=== PATIENT | female | born 1970 | race African-American/Black ===

== ENCOUNTER 2017-01-12 22:18 | Emergency (ER) | payer OTHER ==
--- NOTE | ~2017-01-12 | CR72 ---
[facility] A Service of [facility] & [facility] RADIOLOGY TEXT RESULTS PATIENT: GIOVANNI BANSAL LOCATION: SED : 70 UNIT #: [id number] AGE: [address]: Clyde Quezada MD SEX: F ORDER DR: [id number] [place] [id number] E MR#: [id number] Acc #: [id number] NAME: GIOVANNI BANSAL : 1970 SEX: F STUDY DATE/TIME: 01/12/2017 22:37 UNIT: SED ROOM: STUDY DESCRIPTION: CR Chest Single View Portable Attending Physician: Clyde Quezada M.D. Ordering Physician: Clyde Quezada M.D. Primary Care Physician: Malu Lee M.D. MEDICAL IMAGING REPORT This report is preliminary unless electronic signature is present. EXAM Single view chest x-ray 01/12/2017 HISTORY 46-year-old female in the ED complaining of 2-day history of chest and epigastric pain, fatigue. She reports a past history of MA. Hypertension. TECHNIQUE AP portable chest x-ray. FINDINGS No active disease in the chest. Heart size and pulmonary vascularity are within normal limits given technique. The lungs appear clear. No visible pulmonary infiltrate or pleural effusion. Benign calcified granuloma right lateral midlung. No change since 11/21/2011. IMPRESSION No active disease. No change since 11/21/2011. Dictated by... Joe Barboza M.D. THIS IS AN ELECTRONICALLY VERIFIED REPORT Joe Barboza M.D. at 01/13/2017 5:58 AM JOSELUIS/elvira TD: 01/12/2017 23:46 JOB #: [id number] MEDICAL IMAGING REPORT Page 1 of 1
--- NOTE | ~2017-01-12 | EKG ---
PATIENT: GIOVANNI BANSAL UNIT #: [id number] Ventricular Rate: 64 BPM Atrial Rate: 64 BPM P-R Interval: 134 ms QRS Duration: 82 ms Q-T Interval: 406 ms QTC Calculation(Bezet): 418 ms P [place]: 26 degrees Calculated R [place]: -13 degrees Calculated T [place]: 0 degrees Diagnosis Line: Normal sinus rhythm Diagnosis Line: Normal ECG Diagnosis Line: When compared with ECG of 21-NOV-2011 02:06, Diagnosis Line: No significant change was found Diagnosis Line: Confirmed by VICENTE CRONIN MD ([id number]) on Diagnosis Line: 01/14/2017 9:21:49 AM INTERPRETING MD: ROSEANNE URIAS
[~2017-01-12 22:18] MED LIST: ACETAMINOPHEN PO; COLACE PO; IBUPROFEN600 MG PO; LORTAB 5/500 TA1 TA1 PO; MOTRIN600 M1 PO; NORCO1 TAB 10/3 PO; XARELTO15 MG PO
[2017-01-12 22:31] LABS: BASOPHIL# 0.1 X10e3 (0-0.3); BASOPHIL% 0.8 % (0-2.5); EOSINOPHIL# 0.1 X10e3 (0-0.7); EOSINOPHIL% 0.8 % (0.0-7.0); HEMATOCRIT 38.1 % (35.0-45.0); HEMOGLOBIN 12.7 gm/dL (12.0-16.0); LYMPHOCYTE% 16.1 % (17.0-45.0); MEAN CELL VOLUME 90.6 FL (83-96); MEAN CORPUSCULAR HEMOGLOBIN 30.2 PG (28-34); MEAN CORPUSCULAR HGB CONC 33.3 g/dL (30-36); MEAN PLATELET VOLUME 7.4 FL (6.5-11.5); MONOCYTE# 0.8 X10e3 (0-1.0); MONOCYTE% 6.8 % (3.0-12.0); NEUTROPHIL# 9.5 X10e3 (1.5-7.1); NEUTROPHIL% 75.5 % (40-75); PLATELET COUNT 362 X10e3 (140-420); RED BLOOD COUNT 4.21 X10e (3.90-5.30); RED CELL DISTRIBUTION WIDTH 13.2 % (11.0-15.5); WHITE BLOOD COUNT 12.5 X10e3 (4.0-10.5)
[2017-01-12 22:32] LABS: DIFF IND NO
[2017-01-12 22:41] LABS: PROTHROMBIN TIME (PATIENT) 11.6 SECONDS (9.5-12.4)
[2017-01-12 22:42] LABS: ALBUMIN SERUM 3.8 g/dL (3.5-5.0); BILIRUBIN, DIRECT 0.1 mg/dL (0.0-0.2); BILIRUBIN,INDIRECT 0.3 mg/dL (0.0-0.9); BILIRUBIN,TOTAL 0.4 mg/dL (0.2-2.0); BUN/CREATININE RATIO 24.28; CALCIUM SERUM 8.9 mg/dL (8.4-10.2); CREATININE SERUM 0.7 mg/dL (0.6-1.4); GLOM FILT RATE Estimated 120.4 mL/min (>60); POTASSIUM 3.9 mmol/L (3.5-5.1); PROTEIN TOTAL SERUM 7.2 g/dL (6.0-8.3)
[2017-01-12 22:48] LABS: PARTIAL THROMBOPLASTIN TIME 26.2 SECONDS (25.6-38.1)
[2017-01-12 22:52] LABS: POC - CKMB <1.0 ng/mL (0.0-7.9); POC - TROPONIN <0.05 ng/mL (<=0.05)
== END 2017-01-12 23:43 | disposition home or self-care (01) ==
LOC: SED 22:18
PROVIDERS: Emergency Medicine
DX: R10.13 Epigastric pain (principal); F17.200 Nicotine dependence, unspecified, uncomplicated; Z90.710 Acquired absence of both cervix and uterus
CPT/HCPCS: 36415; 71010; 80048; 80076; 82553; 83690; 84484; 85025; 85610; 85730; 93005; 96374; 99284